=== PATIENT | male | born 1980 | race Hispanic/Latino ===

== ENCOUNTER 2017-09-13 11:48 | Emergency (ER) | payer SELFPAY ==
--- NOTE | 2017-09-13 12:09 | CT ---
CT HEAD WITHOUT CONTRAST: Date: 09/13/17 Multiple axial tomograms are obtained through the head without IV enhancement. INDICATION: Trauma. Fall with injury to head. FINDINGS: Ventricles have normal size and position. No evidence of intracranial hemorrhage identified. No mass or edema identified. Paranasal sinuses and mastoids are well aerated. IMPRESSION: No acute intracranial abnormality identified. POS: [facility]
--- NOTE | 2017-09-13 12:24 | CT ---
CT CERVICAL SPINE: Date: 09/13/17 Multiple axial tomograms obtained through cervical spine with multiplanar reconstruction. INDICATION: Trauma with injury to neck. FINDINGS: Cervical vertebra maintain normal height and alignment. Disc spaces are preserved. No fracture identified. There is cortical irregularity along the posterior border of the C2 vertebra at the base of the odontoid. There is no evidence of fracture associated with this irregularity. IMPRESSION: No acute cervical spine fracture identified. POS: [facility]
[2017-09-13 12:33] LABS: Bilirubin Negative (Negative); Blood, Urine Negative (Negative); Clarity CLEAR (Clear); Glucose, Urine (Dipstick) Negative (Negative); Leukocyte Negative (Negative); Nitrite Negative (Negative); Protein, Urine (Dipstick) Negative (Neg-Trace); Specific Gravity, Urine 1.003 (1.002-1.036)
[2017-09-13 12:36] LABS: #Basophils 0.1 thou/uL (0.0-0.2); #Eosinphils 0.1 thou/uL (0.0-0.7); #Lymphocytes 1.3 thou/uL (1.20-3.40); #Monocytes 0.7 thou/uL (0.11-0.59); #Neutrophils 6.4 thou/uL (1.40-6.50); %Basophils 0.6 % (0.0-1.0); %Eosinophils 1.2 % (0.0-10.0); %Lymphocytes 14.8 % (21.0-51.0); %Monocytes 7.7 % (0.0-10.0); %Neutrophils 75.6 % (42.0-75.0); Hemoglobin 16.1 g/dL (14.0-18.0); Mean Corpuscular HGB CONC 34.4 g/dL (32.0-36.0); Mean Corpuscular Hemoglobin 32.7 pg (27.0-31.0); Mean Corpuscular Volume 95.2 fL (78.0-98.0); Mean Platelet Volume 6.2 fL (7.4-10.4); Platelet Count 270 thou/uL (130-400); RBC Distribution Width 12.4 % (11.5-14.5); Red Blood Cell (RBC) Count 4.92 mill/uL (4.70-6.10); White Blood Cell (WBC) Count 8.5 thou/uL (4.8-10.8)
[2017-09-13 12:44] LABS: Amphetamine Not Detected (NotDetected); Barbiturates Screen Not Detected (NotDetected); Benzodiazepine Screen Not Detected (NotDetected); Cocaine Metabolite Screen Not Detected (NotDetected); Medtox Control Line Valid? VALID (VALID); Medtox Reader # READER 1; Methadone Not Detected (NotDetected); Methamphetamine Not Detected (NotDetected); Opiate Screen Not Detected (NotDetected); Oxycodone Screen Not Detected (NotDetected); Phencyclidine (PCP) Not Detected (NotDetected); THC/Cannabinoid Screen Detected (NotDetected); Tricyclic Screen Not Detected (NotDetected)
[2017-09-13 12:53] LABS: Acetaminophen Less than 6.0 mcg/mL (10.0-30.0); Alcohol Less than 10 mg/dL (Less than 10); Salicylate Less than 8.0 mg/dL (15.0-30.0)
[2017-09-13 12:53] LABS: ALT (SGPT) 32 U/L (8-55); AST (SGOT) 29 U/L (5-34); Albumin 4.6 g/dL (3.5-5.0); Alkaline Phosphatase 95 U/L (40-150); Anion Gap 13 mmol/L (10-20); BUN (Urea Nitrogen) 8 mg/dL (8.9-20.6); Bilirubin, Total 0.6 mg/dL (0.2-1.2); Calc. Creatinine Clearance 0 mL/min (70-130); Calcium 9.7 mg/dL (7.8-10.44); Carbon Dioxide 24 mmol/L (22-29); Chloride 104 mmol/L (98-107); Estimated GFR-MDRD Greater than 90; Globulin 3.4 g/dL (2.4-3.5); Glucose 96 mg/dL (70-105); Potassium 3.6 mmol/L (3.5-5.1); Sodium 137 mmol/L (136-145)
[2017-09-14] MEDS ORDERED: hydrOXYzine 25 MG TAB ONE (05:09)
[2017-09-14] MEDS ORDERED: hydrOXYzine Pamoate 25 mg Capsule ONE ×2 (10:54→17:37)
[2017-09-14] MEDS ORDERED: hydrALAZINE 25 MG TAB ONE (17:35)
== END 2017-09-13 19:59 ==
LOC: ERS 11:48
DX: F23 Brief psychotic disorder (principal)
CPT/HCPCS: 36415; 36416; 70450; 72125; 80053; 80306; 80307; 81003; 82550; 85025; 96360; 96361

== ENCOUNTER 2018-02-17 20:23 | Emergency (ER) | payer SELFPAY ==
--- NOTE | 2018-02-17 21:16 | RAD ---
EXAM: CHEST ONE VIEW: 02/17/18 HISTORY: Chest pain. Heart size is normal. The lungs are clear. No pneumonia, edema, pleural effusion or other acute proce ss. IMPRESSION: No acute intrathoracic disease. POS: [facility]
== END 2018-02-17 21:27 ==
LOC: ERS 20:23
DX: R07.89 Other chest pain (principal)
CPT/HCPCS: 71045; 93005